=== PATIENT | female | born 1950 | race Caucasian/White ===

== ENCOUNTER → 2018-01-27 | Outpatient (CLI) | payer OTHER ==
[2018-01-27] VITALS (7 sets, daily range): BP systolic 100–122; BP diastolic 56–78
[~2018-01-27] VITALS: Ht 172.7 cm; Wt 112.0 kg
[~2018-01-27] MED LIST: ALTACE10 MG PO; ASPIR 8181 MG PO; AUGMENTIN 875-1 EACH PO; CARVEDILOL12.5 MG PO; CIPRO500 MG PO; COLACE 100 MG100 MG PO; ENTRESTO 49 MG1 EACH PO; FLAGYL500 MG PO; LIPITOR 20 MG T20 M1 PO; MIRALAX17 GM PO; NORCO 5-325 TA1 EACH PO
[2018-01-27 09:38] LABS: HEMATOCRIT 39.9 % (37.0-47.0); HEMOGLOBIN 13.3 gm/dL (12.0-15.0); MCH 29.9 pg (26.0-34.0); MCHC 33.3 g/dL (28.0-37.0); MCV 89.8 fL (80.0-100.0); MPV 8.3 fl. (7.2-11.1); RBC 4.44 mil/uL (4.20-5.00); RDW-CV 13.7 % (10.5-14.5); WBC 6.3 thou/uL (4.0-11.0)
[2018-01-27 09:51] LABS: ANION GAP 9 mmol/L (7-16); BUN 12 mg/dL (7-18); CALCIUM 8.7 mg/dL (8.5-10.1); CHLORIDE 109 mmol/L (98-107); CO2 24 mmol/L (21-32); CREATININE 0.8 mg/dL (0.6-1.3); GLUCOSE 130 mg/dL (70-99); POTASSIUM 4.2 mmol/L (3.5-5.1); SODIUM 142 mmol/L (136-145)
[2018-01-27 09:52] LABS: APTT 26.6 Seconds (25.0-31.3); INR 1.1; PROTIME 10.4 Seconds (9.20-11.50)
[2018-01-27 09:55] LABS: ALBUMIN 3.4 g/dL (3.4-5.0); ALKALINE PHOSPHATASE 96 U/L (46-116); CHOLESTEROL 171 mg/dL (<200); HDL CHOLESTEROL 38 mg/dL (>40); LDL CHOLESTEROL 110 mg/dL (<100); SGOT 13 U/L (15-37); SGPT 19 U/L (30-65); TC:HDL 4.5 Ratio (Not establshd); TOTAL BILIRUBIN 1.2 mg/dL (<0.1-1.0); TOTAL PROTEIN 7.4 g/dL (6.4-8.2); TRIGLYCERIDE 116 mg/dL (<150); VLDL 23 mg/dL (<40)
--- NOTE | 2018-01-27 11:08 | EKG ---
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: : 1950 Requested By: Andrea Julian Order Number: [id number] Reading MD: Andrea Julian Measurements Intervals [place] Rate: 58 P: 29 WY: 226 QRS: -43 QRSD: 118 T: -3 QT: 444 QTc: 437 Interpretive Statements Sinus rhythm Prolonged W[place] interval LAD, consider left anterior fascicular block Left ventricular hypertrophy Lateral infarct, age indeterminate No previous ECG available for comparison Electronically Signed On 01-27-2018 11:08:22 CDT by Andrea Julian [email or web address] <ELECTRONICALLY SIGNED> By: Andrea Julian MD, [facility] 01/27/18 1108 [id number] 0955 Andrea Julian MD, [facility] /EPI
[2018-01-27 11:59] LABS: SERUM ASSESSMENT Clear
--- NOTE | 2018-01-28 12:55 | CARD ---
[address] [address] CARDIAC CATH REPORT Name: MONI KUMAR Room: [facility]#: [id number] Admission: 01/27/18 Attend Phys: Andrea Julian MD Discharge: Date of : 46 Report #: [id number] THIS REPORT FOR: //name// APPROVED REPORT Study performed: 01/27/2018 09:34:19 Patient Details Patient Status: Out-Patient Room #: The patient is a 67 year-old female Event Personnel Andrea Julian Diesel Engine Assembler, Komal Wang Mechanical Service Representative, Richard Oliveira (R) Monitor, Emily Denton Scrkasi Procedures Performed Left Heart Cath w/or w/o Coronaries Procedure Narrative A Slender Glidesheath sheath was inserted into the Right Radial Artery. Coronary angiography was performed using coronary diagnostic catheters. The right coronary system was accessed and visualized with a Diagnostic DCR: [place] 4.0 5fr catheter. The left coronary system was accessed and visualized with a Diagnostic DCR: [place] 4.0 5fr catheter. The left ventricle was accessed and visualized with a Diagnostic PC: Angled Pig 5fr catheter. Closure device was deployed with a Fr Vasc-Band Reg 24cm. The patient tolerated the procedure well and there were no complications associated with the procedure. Intraoperative Conscious Sedation Sedation start time: 10:36 Case end Time: 10:50 Fentanyl 25 mcg Versed 2 mg Fluoro Time: 4.6 minutes Dose: DAP 44262 cGycm2 1133 mGy Contrast Type and Amount: Omnipaque 90 ml Coronary Angiography The patient's coronary anatomy is right dominant. Diagnostic Cath Left Main normal LAD mild proximal ,30%, [place] [address] CARDIAC CATH REPORT Name: MONI KUMAR Room: [facility]#: [id number] Admission: 01/27/18 Attend Phys: Andrea Julian MD Discharge: Date of : 46 Report #: [id number] Diagonal 1 tortuous and normal Circumflex normal OM1 normal,large OM2 small and normal Right Coronary proximal normal, mid body normal,distal normal R PDA mild 20% RPLV normal Left Ventriculography The left ventricle is normal in size with reduced contractility. The left ventricular ejection fraction is estimated to be 40-45%. Left ventricular wall motion abnormalities are not present. There is no mitral insufficiency. Hemodynamics The aortic pressure is 93/60 mmHg with a mean of 75 mmHg. The left ventricular pressure is 100/2 mmHg with a mean of mmHg. The left ventricular end diastolic pressure is 5 mmHg. Conclusion 1. mild CAD 2. moderate LV dysfunction Recommendations Aggressive Medical Therapy <ELECTRONICALLY SIGNED> By: Andrea Julian MD, [facility] 01/28/18 1255 1255 1255Andrea Julian MD, [facility] /INF
== END | disposition home or self-care (01) ==
LOC: M.CL 08:51
PROVIDERS: Internal Medicine Cardiovascular Disease
DX: I25.10 Atherosclerotic heart disease of native coronary artery without angina pectoris (principal); I10 Essential (primary) hypertension; E78.5 Hyperlipidemia, unspecified; I25.2 Old myocardial infarction; K21.9 Gastro-esophageal reflux disease without esophagitis; Z98.890 Other specified postprocedural states; Z79.899 Other long term (current) drug therapy; Z79.82 Long term (current) use of aspirin; Z79.01 Long term (current) use of anticoagulants

== ENCOUNTER 2018-03-02 10:16 | Inpatient (IN) | payer OTHER ==
[~2018-03-02] VITALS: Ht 172.7 cm; Wt 109.3 kg
[~2018-03-02 10:16] MED LIST changes: -AUGMENTIN 875-1 EACH PO; -CIPRO500 MG PO; -COLACE 100 MG100 MG PO; -FLAGYL500 MG PO; -MIRALAX17 GM PO; -NORCO 5-325 TA1 EACH PO
[2018-03-02 10:17] VITALS: BP 113/65
[2018-03-02 10:41] LABS: HEMATOCRIT 33.1 % (37.0-47.0); HEMOGLOBIN 11.1 gm/dL (12.0-15.0); MCH 29.7 pg (26.0-34.0); MCHC 33.4 g/dL (28.0-37.0); MCV 88.9 fL (80.0-100.0); MPV 8.5 fl. (7.2-11.1); NUCLEATED RBCS 0 /100WBC; PLATELET COUNT* 423 thou/uL (150-400); RBC 3.73 mil/uL (4.20-5.00); RDW-CV 13.4 % (10.5-14.5); WBC 16.1 thou/uL (4.0-11.0)
[2018-03-02 10:49] LABS: CALCIUM 7.7 mg/dL (8.5-10.1); CREATININE 0.8 mg/dL (0.6-1.3); POTASSIUM 3.3 mmol/L (3.5-5.1)
[2018-03-02 10:54] LABS: ALBUMIN 2.4 g/dL (3.4-5.0); TOTAL BILIRUBIN 3.3 mg/dL (<0.1-1.0); TOTAL PROTEIN 6.4 g/dL (6.4-8.2)
[2018-03-02 11:51] LABS: ABSOLUTE EOSINOPHILS 0.3 thou/uL (0.0-0.7); ABSOLUTE LYMPHOCYTES 0.5 thou/uL (0.8-5.3); ABSOLUTE MONOCYTES 0.8 thou/uL (0.0-1.2); ABSOLUTE NEUTROPHILS 14.5 thou/uL (1.6-8.1)
[2018-03-02 12:00] LABS: PLATELET ESTIMATE INCREASED
[2018-03-02 12:01] LABS: GIANT PLATELETS OCCASIONAL; LARGE PLATELETS FEW
[2018-03-02 12:04] LABS: POIKILOCYTOSIS Occasional
[2018-03-02 14:35] VITALS: BP 103/59
[2018-03-02 15:05] VITALS: BP 105/58
[2018-03-02 16:23] VITALS: BP 93/57
[2018-03-02 19:07] LABS: ICTOTEST (BILI CONFIRMATORY) Negative (Negative); URINE BILIRUBIN 2+ (Negative); URINE BLOOD NEGATIVE (Negative); URINE CLARITY CLEAR; URINE COLOR DARK YELLOW; URINE GLUCOSE-RANDOM TRACE (Negative); URINE KETONES NEGATIVE (Negative); URINE LEUKOCYTES NEGATIVE (Negative); URINE NITRITE NEGATIVE (Negative); URINE PROTEIN 1+ (Negative); URINE SPECIFIC GRAVITY <= 1.005 (1.005-1.030); URINE UROBILINOGEN >= 8.0 E.U./dl (0.2-1.0)
[2018-03-02 20:00] VITALS: BP 95/61
[2018-03-03 03:55] LABS: ABSOLUTE BASOPHILS 0.1 thou/uL (0.0-0.2); ABSOLUTE EOSINOPHILS 0.1 thou/uL (0.0-0.7); ABSOLUTE LYMPHOCYTES 0.8 thou/uL (0.8-5.3); ABSOLUTE MONOCYTES 1.2 thou/uL (0.0-1.2); ABSOLUTE NEUTROPHILS 10.1 thou/uL (1.6-8.1); BASOPHILS 0.6 %; EOSINOPHILS 0.9 %; HEMATOCRIT 30.5 % (37.0-47.0); HEMOGLOBIN 10.1 gm/dL (12.0-15.0); LYMPHOCYTES 6.6 %; MCH 29.7 pg (26.0-34.0); MCHC 33.2 g/dL (28.0-37.0); MCV 89.5 fL (80.0-100.0); MONOCYTES 9.7 %; MPV 8.6 fl. (7.2-11.1); NUCLEATED RBCS 0 /100WBC; PLATELET COUNT* 379 thou/uL (150-400); POLYS 82.2 %; RBC 3.41 mil/uL (4.20-5.00); RDW-CV 13.5 % (10.5-14.5); WBC 12.3 thou/uL (4.0-11.0)
[2018-03-03 04:14] LABS: ALBUMIN 2.2 g/dL (3.4-5.0); CALCIUM 7.9 mg/dL (8.5-10.1); CREATININE 0.9 mg/dL (0.6-1.3); DIRECT BILIRUBIN 1.5 mg/dL (<0.1-0.3); MAGNESIUM 1.8 mg/dL (1.8-2.4); PHOSPHORUS* 3.5 mg/dL (2.5-4.9); POTASSIUM 3.5 mmol/L (3.5-5.1); TOTAL BILIRUBIN 3.2 mg/dL (<0.1-1.0); TOTAL PROTEIN 5.4 g/dL (6.4-8.2)
[2018-03-03 08:15] VITALS: BP 115/66
--- NOTE | 2018-03-03 17:30 | EKG ---
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 : 1950 Requested By: Marina Ramirez Order Number: [id number] MD: Andrea Julian Measurements Intervals [place] Rate: 64 P: 41 [place]: 169 QRS: -39 QRSD: 117 T: 77 QT: 423 QTc: 437 Interpretive Statements Sinus rhythm Ventricular trigeminy Low voltage, precordial leads LVH with IVCD, LAD and secondary repol abnrm Compared to ECG 01/27/2018 09:55:18 Ventricular premature complex(es) now present Low QRS voltage now present Intraventricular conduction delay now present Early repolarization now present First degree AV block no longer present Myocardial infarct finding no longer present Electronically Signed On 03-03-2018 17:29:59 CDT by Andrea Julian [email or web address] <ELECTRONICALLY SIGNED> By: Andrea Julian MD, [facility] 03/03/18 1729 1023 1023 Andrea Julian MD, [facility] /EPI
[2018-03-03 20:00] VITALS: BP 102/45
[2018-03-04 05:33] VITALS: BP 102/45; BP 102/53
[2018-03-04 06:27] LABS: HEMATOCRIT 28.3 % (37.0-47.0); HEMOGLOBIN 9.4 gm/dL (12.0-15.0); MCHC 33.2 g/dL (28.0-37.0); MCV 90.2 fL (80.0-100.0); MPV 9.2 fl. (7.2-11.1); RBC 3.14 mil/uL (4.20-5.00); RDW-CV 13.7 % (10.5-14.5); WBC 13.2 thou/uL (4.0-11.0)
[2018-03-04 06:37] LABS: ALBUMIN 2.1 g/dL (3.4-5.0); CALCIUM 7.9 mg/dL (8.5-10.1); CREATININE 0.8 mg/dL (0.6-1.3); DIRECT BILIRUBIN 1.2 mg/dL (<0.1-0.3); MAGNESIUM 1.8 mg/dL (1.8-2.4); PHOSPHORUS* 3.1 mg/dL (2.5-4.9); POTASSIUM 3.5 mmol/L (3.5-5.1); TOTAL BILIRUBIN 2.3 mg/dL (<0.1-1.0); TOTAL PROTEIN 5.3 g/dL (6.4-8.2)
[2018-03-04 08:10] VITALS: BP 103/48
--- NOTE | 2018-03-04 10:23 | EKG ---
[place] [address] ELECTROCARDIOGRAM REPORT Name: MONI KUMAR Room: [address] ADM IN .R.#: [id number] Admission: 03/02/18 Attend Phys: Júnior House MD Discharge: Date of : 46 Report #: [id number] THIS REPORT FOR: //name// 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 : 1950 Requested By: Júnior House Order Number: [id number] Reading MD: Andrea Julian Measurements Intervals [place] Rate: 67 P: 44 WY: 204 QRS: -34 QRSD: 117 T: 70 QT: 442 QTc: 467 Interpretive Statements Sinus bradycardia Multiple ventricular premature complexes Nonspecific intraventricular conduction delay Compared to ECG 03/02/2018 10:23:19 Sinus rhythm no longer present Left ventricular hypertrophy no longer present Early repolarization no longer present Electronically Signed On 03-04-2018 10:22:55 CDT by Andrea Julian [email or web address] <ELECTRONICALLY SIGNED> By: Andrea Julian MD, [facility] 03/04/18 1022 0930 Andrea Julian MD, [facility] /EPI
[2018-03-04 16:04] VITALS: BP 112/64
[2018-03-04 20:30] VITALS: BP 124/66
[2018-03-05 00:07] VITALS: BP 125/64
[2018-03-05 04:42] LABS: HEMATOCRIT 28.2 % (37.0-47.0); HEMOGLOBIN 9.4 gm/dL (12.0-15.0); MCH 30.3 pg (26.0-34.0); MCHC 33.4 g/dL (28.0-37.0); MCV 90.6 fL (80.0-100.0); RBC 3.11 mil/uL (4.20-5.00); RDW-CV 13.7 % (10.5-14.5); WBC 9.6 thou/uL (4.0-11.0)
[2018-03-05 05:02] LABS: ALBUMIN 1.9 g/dL (3.4-5.0); CALCIUM 8.4 mg/dL (8.5-10.1); CREATININE 0.7 mg/dL (0.6-1.3); POTASSIUM 3.6 mmol/L (3.5-5.1); TOTAL BILIRUBIN 0.9 mg/dL (<0.1-1.0); TOTAL PROTEIN 6.1 g/dL (6.4-8.2)
[2018-03-05 07:35] VITALS: BP 141/79
[2018-03-05 17:40] VITALS: BP 145/86
[2018-03-05 20:40] VITALS: BP 134/69
[2018-03-06 00:04] VITALS: BP 149/72
[2018-03-06 03:44] LABS: HEMATOCRIT 30.4 % (37.0-47.0); HEMOGLOBIN 9.8 gm/dL (12.0-15.0); MCH 29.3 pg (26.0-34.0); MCHC 32.3 g/dL (28.0-37.0); MCV 90.7 fL (80.0-100.0); MPV 8.7 fl. (7.2-11.1); RBC 3.35 mil/uL (4.20-5.00); RDW-CV 13.7 % (10.5-14.5)
[2018-03-06 04:04] VITALS: BP 150/78
[2018-03-06 04:12] LABS: ALBUMIN 1.8 g/dL (3.4-5.0); CALCIUM 8.1 mg/dL (8.5-10.1); CREATININE 0.7 mg/dL (0.6-1.3); MAGNESIUM 1.6 mg/dL (1.8-2.4); PHOSPHORUS* 2.8 mg/dL (2.5-4.9); POTASSIUM 3.3 mmol/L (3.5-5.1); TOTAL BILIRUBIN 0.8 mg/dL (<0.1-1.0)
[2018-03-06 07:45] VITALS: BP 149/78
[2018-03-06 15:40] VITALS: BP 142/68
[2018-03-06 21:00] VITALS: BP 151/72
[2018-03-07 00:17] VITALS: BP 108/69
[2018-03-07 04:11] LABS: HEMATOCRIT 30.8 % (37.0-47.0); HEMOGLOBIN 10.2 gm/dL (12.0-15.0); MCH 29.7 pg (26.0-34.0); MCHC 32.9 g/dL (28.0-37.0); MCV 90.2 fL (80.0-100.0); MPV 8.5 fl. (7.2-11.1); RBC 3.42 mil/uL (4.20-5.00); RDW-CV 13.3 % (10.5-14.5); WBC 8.7 thou/uL (4.0-11.0)
[2018-03-07 04:37] LABS: ALBUMIN 1.9 g/dL (3.4-5.0); CALCIUM 8.3 mg/dL (8.5-10.1); CREATININE 0.7 mg/dL (0.6-1.3); MAGNESIUM 1.6 mg/dL (1.8-2.4); PHOSPHORUS* 3.7 mg/dL (2.5-4.9); POTASSIUM 3.4 mmol/L (3.5-5.1); TOTAL BILIRUBIN 0.7 mg/dL (<0.1-1.0)
[2018-03-07 04:53] VITALS: BP 122/62
[2018-03-07] MEDS ORDERED: MIRALAX17 GM PO (08:07)
[2018-03-07] MEDS ORDERED: AUGMENTIN 875-1 EACH PO (08:07)
[2018-03-07] MEDS ORDERED: COLACE 100 MG100 MG PO (08:07)
[2018-03-07 08:30] VITALS: BP 158/79
[2018-03-07] MEDS ORDERED: NORCO 5-325 TA1 EACH PO (10:08)
[2018-03-07] MEDS ORDERED: FLAGYL500 MG PO (10:09)
[2018-03-07] MEDS ORDERED: CIPRO500 MG PO (10:10)
[2018-03-07 10:11] VITALS: BP 158/79
[2018-03-07 16:22] VITALS: BP 158/79
--- NOTE | 2018-03-16 08:23 | OP ---
[facility] [address] [place] [address] OPERATIVE REPORT Name: STACYMONI M Room: [address] IN [facility].#: [id number] Admission: 03/02/18 Attend Phys: Júnior House MD Discharge: 03/07/18 Date of : 46 Report #: [id number] THIS REPORT FOR: //name// CC: Júnior Koch DATE OF SERVICE: 03/04/2018 PREOPERATIVE DIAGNOSIS: Severe gangrenous cholecystitis. POSTOPERATIVE DIAGNOSIS: Severe gangrenous cholecystitis. PROCEDURE: Laparoscopic cholecystostomy tube placement. SURGEON: Elizabeth Stern M.D. DEAN OF WOMEN: 1. Rosa Elena Ronquillo DO 2. Priscilla Gustafson DO. ESTIMATED BLOOD LOSS: 5 mL. COMPLICATIONS: None. FINDINGS: Severe inflammation with significant adhesion at the base to duodenum and yoly hepatis. DESCRIPTION OF PROCEDURE: Full informed consent obtained preoperatively including full discussion of risks, benefits, alternatives and questions answered. The patient understood risk of bleeding, infection, reoperation, injury to surrounding structures, chronic pain, conversion to open, need for a prolonged cholecystostomy tube placement followed by second surgery, injury to bowel or common bile duct, hernia, catastrophic complications up to and including cardiopulmonary failure and . The patient understood and wished to proceed. She was taken to the operating room. We prepped and draped in standard sterile fashion. Timeout was performed, all in agreement. We began with a 5 mm incision in the left upper quadrant. I used the Optiview to enter safely in the abdomen, inspected the abdomen, only finding of note was severe inflammation in the right upper quadrant with both colon and omentum covering the liver. I placed additional ports. I placed the head up tilted to the left. Next, I began my dissection the omentum off of the top of the liver and the gallbladder. This took some time. Hepatic flexure was actually up on it and it was away It was at this time, I able to see the top of the gallbladder. I was able to get enough of it exposed. I placed a decompression needle into it and jericho back several vials of bilious fluid. [place] [id number] OPERATIVE REPORT Name: MONI KUMAR Room: [address] IN [facility].#: [id number] Admission: 03/02/18 Attend Phys: Júnior House MD Discharge: 03/07/18 Date of : 46 Report #: [id number] aerobic, anaerobic and Gram stain. I continued working my dissection bluntly away the surrounding omentum and a surrounding abscess pocket. I came down to the base. I could see where the duodenum was pulled up just at the mid portion of the gallbladder. This was away. The gallbladder itself was noted to have several gangrenous aspects and severe inflammation. Getting towards the base, I did not lift off of the yoly hepatis. Next, I placed a cholecystostomy tube into the gallbladder given that it would not lift off of the yoly hepatis in these vessels and the common bile duct. Cholecystostomy tube placed. I performed cholangiogram to make sure all contrast was well contained within the gallbladder and it was. There was no filling into the common bile duct when this was shot. I placed an additional 15-Lux[place]ish DANIEL beneath the gallbladder. I closed the 11 mm incisions at the muscle with 0 Vicryl and Maxwell-Sayda and 4-0 Monocryl to close skin. I sewed in the cholecystostomy tube, which had the tip curled as well as the drain with 2-0 nylon. Dermabond applied. Sponge, needle, and instrument counts correct at the end of the case. The patient tolerated well. Postoperative plan is to allow her to recover and then plan on sending the patient home to return in approximately 6 weeks to 3 months for interval cholecystectomy after inflammation has decreased. <ELECTRONICALLY SIGNED> By: Elizabeth Stern MD 03/16/18 0823 1021 1056Darcsuzan Stern MD /senia
== END 2018-03-07 15:50 | disposition home health service (06) | DRG 444 ==
LOC: M.ERS 10:16 → M.TBA-ER 13:51 → M.ORTHSURG 13:51
PROVIDERS: Physician Assistant Surgical; ADMIT Internal Medicine
DX: K80.01 Calculus of gallbladder with acute cholecystitis with obstruction (principal); J96.91 Respiratory failure, unspecified with hypoxia; E43 Unspecified severe protein-calorie malnutrition; I42.8 Other cardiomyopathies; I25.10 Atherosclerotic heart disease of native coronary artery without angina pectoris; K21.9 Gastro-esophageal reflux disease without esophagitis; E83.42 Hypomagnesemia; E87.6 Hypokalemia; I10 Essential (primary) hypertension; E78.5 Hyperlipidemia, unspecified; I25.2 Old myocardial infarction; Z90.49 Acquired absence of other specified parts of digestive tract; Z79.82 Long term (current) use of aspirin; Z79.899 Other long term (current) drug therapy; Z80.0 Family history of malignant neoplasm of digestive organs; Z68.36 Body mass index [BMI] 36.0-36.9, adult